=== PATIENT | female | born 1965 | race Caucasian/White ===

== ENCOUNTER 2024-08-23 12:36 | Emergency (ER) | payer OTHER | END 2024-08-23 13:42 | disposition home or self-care (01) | LOC: BURERS 12:36 | DX: S91.111A Laceration without foreign body of right great toe without damage to nail, initial encounter (principal); I11.0 Hypertensive heart disease with heart failure; I50.9 Heart failure, unspecified; J44.9 Chronic obstructive pulmonary disease, unspecified; I25.2 Old myocardial infarction; E11.42 Type 2 diabetes mellitus with diabetic polyneuropathy; X58.XXXA Exposure to other specified factors, initial encounter; Y93.01 Activity, walking, marching and hiking; Z55.6 Problems related to health literacy | CPT/HCPCS: 12001; 99283 ==

== ENCOUNTER 2025-05-05 15:39 | Inpatient (IN) | payer OTHER ==
[2025-05-05 15:59] LABS: #Basophils 0.1 thou/uL (0.0-0.2); #Eosinophils 0.5 thou/uL (0.0-0.7); #Lymphocytes 2.5 thou/uL (1.20-3.40); #Monocytes 0.4 thou/uL (0.11-0.59); #Neutrophils 3.6 thou/uL (1.40-6.50); %Basophils 1.4 % (0.0-1.0); %Eosinophils 7.2 % (0.0-10.0); %Lymphocytes 35.1 % (21.0-51.0); %Monocytes 5.7 % (0.0-10.0); %Neutrophils 50.6 % (42.0-75.0); Hematocrit 39.6 % (36.0-47.0); Hemoglobin 13.7 g/dL (12.0-16.0); Mean Corpuscular HGB CONC 34.5 g/dL (32.0-36.0); Mean Corpuscular Hemoglobin 26.1 pg (27.0-31.0); Mean Corpuscular Volume 75.7 fl (78.0-98.0); Mean Platelet Volume 6.2 fL (7.4-10.4); Platelet Count 304 10x3/uL (130-400); Red Blood Cell (RBC) Count 5.23 mill/uL (4.20-5.40)
[2025-05-05 16:15] LABS: Acetaminophen Less than 10 mcg/mL (Less than 10); Alcohol Less than 10.0 mg/dL (Less than 10); Salicylate Less than 8.0 mg/dL (Less than 8.0)
[2025-05-05 16:18] LABS: ALT (SGPT) 16 U/L (Less than 34); AST (SGOT) 18 U/L (11-34); Albumin 3.7 g/dL (3.1-4.5); Alkaline Phosphatase 135 U/L (40-110); Anion Gap 19 mmol/L (10-20); BUN (Urea Nitrogen) 15 mg/dL (9.8-20.1); Bilirubin, Total 0.5 mg/dL (0.3-1.2); CK (CPK) 62 U/L (29-168); Calc. Creatinine Clearance 0 mL/min (70-130); Calcium 9.5 mg/dL (7.8-10.44); Carbon Dioxide 21 mmol/L (22-29); Chloride 105 mmol/L (98-107); Estimated GFR 76; Globulin 4.2 g/dL (2.4-3.5); Glucose 189 mg/dL (70-105); Potassium 3.9 mmol/L (3.5-5.1); Protein, Total 7.9 g/dL (6.0-8.3); Sodium 141 mmol/L (136-145); Troponin I Less than 0.010 ng/mL (< 0.028)
[2025-05-05 16:23] LABS: Bilirubin Small (Negative); Blood, Urine Negative (Negative); Clarity Slightly Cloudy (Clear); Glucose, Urine (Dipstick) Negative (Negative); Ketone, Urine 15 mg/dL (Negative); Leukocyte Moderate (Negative); Nitrite Negative (Negative); Protein, Urine (Dipstick) Trace mg/dL (Neg-Trace)
[2025-05-05 16:28] LABS: CAUTI Indications for Culture Alt mental st,lethar; RBC/HPF 0-3 HPF (0-3); WBC/HPF 21-50 HPF (0-3)
[2025-05-05 16:29] LABS: Bacteria/HPF 1+ HPF (None Seen); Mucous/LPF Few LPF (<2+); Urine Culture Reflex Yes Yes
[2025-05-05 16:32] LABS: Amphetamine Negative (Negative); Barbiturates Screen Negative (Negative); Benzodiazepine Screen Negative (Negative); Cocaine Metabolite Screen Negative (Negative); Methadone Negative (Negative); Methamphetamine Negative (Negative); Opiate Screen Negative (Negative); Oxycodone Screen Negative (Negative); Phencyclidine (PCP) Negative (Negative); THC/Cannabinoid Screen Negative (Negative); Tricyclic Screen Negative (Negative)
[2025-05-05] MEDS ORDERED: Ondansetron ODT 4 MG TAB PO PRN (19:23)
[2025-05-05] MEDS ORDERED: traZODone HCl 50 MG TAB PO PRN (19:48)
[2025-05-05] MEDS: Sodium Chloride 0.9% 1,000 ML IV SCH (20:20)
[2025-05-05] MEDS: cefTRIAXone (ROCEPHIN) 1 GM VIAL ONE (20:43)
[2025-05-05] MEDS: Sodium Chloride 0.9% 100 ML ONE (20:44)
[2025-05-05] MEDS: cefTRIAXone\\ROCEPHIN 1 GM in Sodium Chloride 0.9% 100 ML IVPB SCH (20:45)
[2025-05-05 21:18] VITALS: BMI 32.4
[2025-05-05] MEDS: Gabapentin 300 MG CAP PO SCH (21:35)
[2025-05-05] MEDS: Carvedilol 25 MG TAB PO SCH (21:47)
[2025-05-05] MEDS: Apixaban 5 MG TAB PO SCH (21:47)
[2025-05-05] MEDS: Atorvastatin Calcium 40 MG TAB PO SCH (21:47)
[2025-05-05] MEDS: Mometasone 100 MCG/Formoterol 5 MCG 60 PUFF AEROSOL INH SCH (21:54)
[2025-05-06] MEDS: Acetaminophen 325 MG TAB PO PRN (04:27)
[2025-05-06 05:55] LABS: Anion Gap 12 mmol/L (10-20); BUN (Urea Nitrogen) 13 mg/dL (9.8-20.1); Calc. Creatinine Clearance 114 mL/min (70-130); Calcium 8.2 mg/dL (7.8-10.44); Carbon Dioxide 23 mmol/L (22-29); Chloride 110 mmol/L (98-107); Estimated GFR 99; Glucose 183 mg/dL (70-105); Potassium 4.2 mmol/L (3.5-5.1); Sodium 141 mmol/L (136-145)
[2025-05-06] MEDS: Empagliflozin 25 MG TAB PO SCH (09:04)
[2025-05-06] MEDS: Citalopram 20 MG TAB PO SCH (09:04)
[2025-05-06] MEDS: Aspirin Chewable 81 MG TAB PO SCH (09:04)
[2025-05-06] MEDS: Losartan 50 MG TAB PO SCH (09:05)
[2025-05-06] MEDS: Saxagliptin 5 MG TABLET PO SCH (09:05)
[2025-05-06] MEDS: Pantoprazole 40 MG DR.TAB PO SCH (09:05)
[2025-05-07] MEDS: Nystatin Powder 15 GM BOT TOP PRN (08:45)
[2025-05-08 16:50] VITALS: BP 120/70; TEMP 98.8
== END 2025-05-08 16:00 | disposition home or self-care (01) | DRG 690 ==
LOC: BURERS 15:39 → INTOOBSV 18:50 → BURMED 18:50 → OBSVTOIN 05-06 18:06
PROVIDERS: ADMIT Family Medicine; ATTEND Family Medicine
DX: N39.0 Urinary tract infection, site not specified (principal); R29.6 Repeated falls; E86.0 Dehydration; E11.65 Type 2 diabetes mellitus with hyperglycemia; Z79.4 Long term (current) use of insulin; Z79.899 Other long term (current) drug therapy
CPT/HCPCS: 36415; 80048; 80053; 80306; 80307; 81001; 82550; 84484; 85025; 87040; 87086; 93005; 94664; J0696; J7030